=== PATIENT | female | born 1980 | race Caucasian/White ===

== ENCOUNTER → 2020-01-10 14:14 | Outpatient (CLI) | payer OTHER, SELFPAY ==
--- NOTE | 2020-01-10 | DI.US.S_ITS ---
PROCEDURE: US OB >= 14 WEEKS FETUS INDICATIONS: 20 week Anatomy scan OUTSIDE/PRIOR DATING DATA: Last menstrual period (LMP): 08/12/2019. LMP-based estimated date of delivery (ELVIA): 05/18/2020 . First dating scan (date and location): 10/10/2019 . Estimated date of delivery (ELVIA) from first dating scan: 05/27/2020 . TECHNIQUE: Real-time scanning was performed of the fetus, with image documentation and biometric measurements. Endovaginal scanning: No COMPARISON: [facility], US, US OB < 14 WEEKS + OB TRANSVAG, 10/10/2019, 14:28. FINDINGS: General: A single living intrauterine gestation is present. Presentation: Vertex. Placenta: Placental position is anterior right lateral , without previa. Amniotic fluid index: 11.5 cm, normal range is 5-24 cm. heart rate: 137 beats per minute. Maternal cervical canal: 4.2 cm long. Normal lower limit is 2.5 cm. biometrics: Biparietal diameter: 20 weeks 6 days Head circumference: 20 weeks 2 days Abdominal circumference: 20 weeks 4 days Femur length: 21 weeks 1 day Estimated gestational age from initial scan: 20 weeks 2 days Composite gestational age from present scan: 20 weeks 5 days Estimated weight and percentile: 377 g; 73rd percentile Measurement variability for biometric dating: +/- 7 days from 14 weeks to 15 weeks 6 days gestation, +/- 10 days from 16 weeks to 21 weeks 6 days gestation, +/- 2 weeks from 22 weeks to 27 weeks 6 days gestation, +/- 3 weeks for 28 weeks gestation or later. weight reference: 4500 g or EFW >90/95% is considered macrosomia or large for gestational age. EFW <10% is small for gestational age. EFW 5% or less is considered intra-uterine growth restriction. Anatomic survey: Neuro: Ventricles are non-dilated at less than 10 mm. Cisterna magna is normal at 3-11 mm. Cerebellum is normal in size and morphology. Nuchal skin fold: Normal at less than 6 mm between 14-21 weeks gestational age. Face: Nose and lips, facial profile are normal. Spine: No evidence for spina bifida. Heart: 4-chambered heart is present, with normal ventricular outflow tracts. Diaphragm: Diaphragm is intact. Stomach: Left-sided stomach is present. Kidneys: No hydronephrosis. Normal is less than 5 mm in 2nd trimester, less than 7 mm in 3rd trimester. Cord: 3-vessel cord has orthotopic insertion. Bladder: Normal in size. Extremities: All 4 extremities identified. IMPRESSION: 1. Single living IUP redemonstrated and interval growth is normal. 2. Normal anatomic survey. Dictated by: Javi Suarze [facility] Interpreted: Markell Araya MD on 01/10/2020 at 15:59 Approved by: Markell Araya M.D. on 01/10/2020 at 17:25
== END ==
PROVIDERS: Family Provider Family Medicine; Referring Provider Nurse Practitioner Obstetrics & Gynecology; Visit Provider Nurse Practitioner Obstetrics & Gynecology
DX: Z34.92 Encounter for supervision of normal pregnancy, unspecified, second trimester (principal); Z3A.20 20 weeks gestation of pregnancy
CPT/HCPCS: 76811

== ENCOUNTER → 2020-02-10 08:52 | Outpatient (CLI) | payer OTHER, MEDICAID, SELFPAY ==
[2020-02-10 11:28] LABS: Hematocrit 34.1 % (36-46); Hemoglobin 11.8 g/dL (12.0-16.0); Mean Corpuscular HGB Conc 34.6 % (30-36); Mean Corpuscular Hemoglobin 31.4 PG (26-34); Mean Corpuscular Volume 90.7 fL (80-100); Platelet Count 225 X10^3/uL (150-400); Red Blood Cell Count 3.76 X10^6/uL (4.0-5.2); Red Cell Distribution Width 13.9 % (11.6-14.8); White Blood Cell Count 9.8 X10^3/uL (4.5-11.0)
[2020-02-10 11:31] LABS: Glucose Fasting 81 mg/dL (70-100)
[2020-02-10 11:46] LABS: Glucose Tol Interpretation INTERPRETATION
[2020-02-10 11:56] LABS: Glucose 1 Hour 127 mg/dL (70-170)
[2020-02-10 12:32] LABS: Glucose 2 Hour 131 mg/dL (70-140)
== END ==
PROVIDERS: Family Provider Family Medicine; PCP Family Medicine; Referring Provider Nurse Practitioner Obstetrics & Gynecology; Visit Provider Nurse Practitioner Obstetrics & Gynecology
DX: Z34.90 Encounter for supervision of normal pregnancy, unspecified, unspecified trimester (principal); Z13.1 Encounter for screening for diabetes mellitus; Z3A.26 26 weeks gestation of pregnancy
CPT/HCPCS: 36415; 82951; 82952; 85027

== ENCOUNTER 2020-06-03 07:30 | Inpatient (IN) | payer OTHER, MEDICAID, SELFPAY ==
--- NOTE | 2020-06-03 07:49 | PM.OBHP.1 ---
OB HPI Date/Time Date of admission: 06/03/20 Date Patient Seen: 06/03/20 Time Patient Seen: 07:30 History of Present Condition Chief complaint: Induction : 1 Para: 0 Estimated Date of Delivery: 05/27/20 Estimated Gestational Age (weeks): 41 Narrative: Nas Galvin is a 39 year old female G1P 0n @ 41wks by LMP and early US who presents for a post-dates IOL. Was seen in clinic last night w/ a reactive NST and Francisco balloon placed. Had moderate contractions from 8pm-12am and then was able to sleep. Uncomplicated PN care w/ CNM. Desires low intervention . Supported by partner, Trevon and Neli hunter, to come once Nas is kesha regularly. Indications Indication for induction OB: post dates History of Present care: good care, initiated at week # (11), number of visits (11) and pounds weight gain (27) Dating criteria: LMP confirmed by 1st trimester US Ultrasounds: normal mid trimester US Obstetrical complications: none Medical complications: none Preadmission Labs Blood type: A (+) positive -: Antibody screen: negative, GBS status: positive, HBsAG: negative, HIV: negative, HSV 1: positive, HSV 2: negative and RPR/VDLR: negative -: Chlamydia screen: not detected and Gonorrhea screen: not detected -: Rubella: immune HCT: 34.1 HCAB: negative Cell-free DNA: Negative/female Narrative: 2hr gtt: 81/127/131 Evaluation Evaluation Baseline heart rate: 140 Variability: Moderate (11-25) monitor accelerations: Present monitor decelerations: Absent Contraction Frequency (minutes): 0 Status: Category l Cervical dilation (cm): 4 Cervical effacement (%): 70 station: -4 Laboratory results: soft, posterior Francisco balloon removed from vagina prior to CE. [facility] Medical History (Updated 06/03/20 @ 08:05 by Tova Lyle CNM) Anxiety Nipple anomaly Social History (Updated 06/03/20 @ 08:06 by Tova Lyle CNM) marital status: household members: spouse lives independently: Yes caregiver/support person: No housing: house education level: college current occupational exposures/hazards: No special aviva needs: No Smoking Status: Never smoker Meds Home Medications and Allergies Allergies Allergy/AdvReac Type Severity Reaction Status Date / Time No Known Drug Allergies Allergy Verified 06/03/20 08:11 Review of Systems Review of Systems ROS: Yes All systems reviewed with the patient and are negative except as otherwise documented Exam Vital Signs (past 8 hours): BP 116/65, HR 91bpm, T 36.6C Temporal Presentation: vertex Assessment and Plan Assessment and Plan Assessment and Plan narrative: A: [place] 41 wk IOL GBS prophylaxis indicated Reactive NST P: Admit routine orders. Recommend 2 doses of misoprostil, give Reddy score of 7 this morning. Will start IV and pitocin once Reddy of 8-9 is achieved. Will start penicillin for GBS once in active labor. consultation after . Reassess after 2 dose of misoprostil ( around 4pm) or sooner, PRN. Time Spent with Patient Total time spent with greater than 50% in coordination of care (as documented) at patient's floor/unit and/or counseling patient:: 15-24 minutes
[2020-06-03 08:12] VITALS: BP 116/65
[2020-06-03] MEDS: miSOPROStoL 25 MCG TABLET 50 MCG PO ×2 (08:22→12:34)
[2020-06-03 08:36] LABS: Add Manual Diff / Slide Review NO; Basophils Absolute Auto 0 /uL (0-100); Basophils Percent Auto 0.2 % (0-2); Eosinophils Absolute Auto 0 /uL (0-450); Eosinophils Percent Auto 0.3 % (2-4); Hematocrit 37.4 % (36-46); Hemoglobin 12.5 g/dL (12.0-16.0); Lymphocytes Absolute Auto 1200 /uL (1100-4500); Lymphocytes Percent Auto 8.7 % (25-40); Mean Corpuscular HGB Conc 33.4 % (30-36); Mean Corpuscular Hemoglobin 30.5 PG (26-34); Mean Corpuscular Volume 91.3 fL (80-100); Monocytes Absolute Auto 800 /uL (0-900); Neutrophils Absolute Auto 11400 /uL (1500-7000); Neutrophils Percent Auto 84.8 % (50-75); Platelet Count 202 X10^3/uL (150-400); Red Cell Distribution Width 13.5 % (11.6-14.8); White Blood Cell Count 13.4 X10^3/uL (4.5-11.0)
[2020-06-03 08:57] LABS: COVID19 - ADMIT (NP swab/PCR) Negative (Negative)
--- NOTE | 2020-06-03 15:55 | PM.OBPNLAB ---
Date/Time Date Patient Seen: 06/03/20 Time Patient Seen: 15:35 Pain Control Pain control: tolerating well Comments: SROM, clear fluid occurred @ 1505. Nas thinks her contractions have spaced but gotten stronger since ROM. Now occasionally breathing through contractions, but says they;re not strong. Pelvic Exam Dilation (cm): 4 Effacement (%): 70 station: -4 Amniotic membrane status: Leaking (clear) Contractions Contractions on admission: none Monitor mode: External Pitocin rate (mU/min): 0 Contraction frequency (min): 4 Contraction duration (min): 1 Contraction pattern: Regular Contraction intensity: Moderate Status status: Category ll Heart Rate Baseline: 150 Monitor Accelerations: Absent Monitor Decelerations: Early, Late (x2) and Variable Monitor Variability: Moderate Assessment and Plan Assessment: induction ongoing Plan: continuous present management Comments: Start PCN for GBS prophylaxis. Expectant management x 4 hours as pt is currently breathing through contractions and ruptured w/ last/second dose of misoprostil @ 1230. Reassess in 4 hours or sooner, PRN.
[2020-06-03] MEDS: LACTATED RINGERS 1,000 ML 100 ML IV (16:00)
[2020-06-03] MEDS: PENICILLIN G POTASSIUM 5,000,000 UNIT in DEXTROSE 5% IN WATER 250 ML IV (16:06)
[2020-06-03] MEDS: PENICILLIN G POTASSIUM 3,000,000 UNIT/50 ML FROZ.PIGGY 100 UNIT IV (19:49)
--- NOTE | 2020-06-03 19:56 | PM.OBPNLAB ---
Date/Time Date Patient Seen: 06/03/20 Time Patient Seen: 19:57 Pain Control Pain control: tolerating well Comments: Nas has been laboring well without medication. Trying lots of different positions, currently rocking on the CUB, leaning on Trevon, breathing through and moaning with strong contractions. Continuous system validation engineer support since 1729. Continues to leak small amounts of fluid, noted to be lightly stained w/ meconium. VS: BP 104/66mmHg, HR 87bpm, T 36.9C Temporal Pelvic Exam Dilation (cm): 5 Effacement (%): 90 station: -2 Amniotic membrane status: Leaking (clear) Comments: CE @ 1730 Contractions Monitor mode: External Pitocin rate (mU/min): 0 Contraction frequency (min): 3 Contraction duration (min): 1 Contraction pattern: Regular Contraction intensity: Strong/Firm Status status: Category ll Heart Rate Baseline: 145 Monitor Accelerations: Present Monitor Decelerations: Early and Variable Monitor Variability: Moderate Comments: overall reassuring Assessment and Plan Assessment: active labor Plan: continuous present management Comments: Continue expectant management of labor. Continuous labor support. Reassess in 2 hours or sooner, PRN.
[2020-06-03] MEDS: OXYTOCIN PREMIX 30 UNIT/500 ML PLAST..BAG 200 UNIT IV (21:03)
--- NOTE | 2020-06-03 22:09 | PM.OBPNLAB ---
Date/Time Date Patient Seen: 06/03/20 Time Patient Seen: 22:09 Pain Control Pain control: tolerating well Comments: Nas continues to labor well without medication. Currently on knees on CUB in bed. Breathing through and moaning with contractions, occasionally feeling mild rectal pressure. Pelvic Exam Dilation (cm): 7 Effacement (%): 90 station: -1 Amniotic membrane status: Leaking (clear) Contractions Contractions on admission: none Monitor mode: External Pitocin rate (mU/min): 0 Contraction frequency (min): 3 Contraction duration (min): 1 Contraction pattern: Regular Contraction intensity: Strong/Firm Status status: Category ll Heart Rate Baseline: 150 Monitor Accelerations: Absent Monitor Decelerations: Early and Variable Monitor Variability: Moderate Comments: OP position Assessment and Plan Assessment: active labor Plan: continuous present management Comments: Continue expectant management of labor. Recommend [employer] to promote rotation. Continuous EFM. RT @ for meconium. on unit, aware of FHR tracing, patient status and plan of care. Reassess in 4 hours or sooner, PRN.
[2020-06-04] MEDS: PENICILLIN G POTASSIUM 3,000,000 UNIT/50 ML FROZ.PIGGY 100 UNIT IV (00:06)
--- NOTE | 2020-06-04 01:53 | PM.OBPNLAB ---
Date/Time Date Patient Seen: 06/04/20 Time Patient Seen: 01:53 Pain Control Pain control: tolerating well Comments: Patient continues to labor well without medication. Continues to leak small amounts of meconium stained fluid, recently w/ bloody show. Continuous labor support from elsa Lester Dana, ad CNM. Recently got out of the tub and is currently on hands and knees in bed. Pelvic Exam Dilation (cm): 9 Effacement (%): 100 station: +1 Amniotic membrane status: Leaking (clear) Comments: FSE placed @ 0146 Contractions Contractions on admission: none Monitor mode: Internal Pitocin rate (mU/min): 0 Contraction frequency (min): 3 Contraction duration (min): 1 Contraction pattern: Regular Contraction intensity: Strong/Firm Status status: Category ll Heart Rate Baseline: 135 Monitor Accelerations: Absent Monitor Decelerations: Late Monitor Variability: Moderate Comments: Previously recurrent late decelerations have resolved w/ position, and O2 @ 10L /NRB mask Assessment and Plan Assessment: active labor Plan: continuous present management Comments: Discussed FHR tracing and labor progress w/ right before resolution of late decelerations. Will continue expectant management and continuous bedside support. Anticipate beginning seconds stage soon.
--- NOTE | 2020-06-04 03:10 | P.PCNOB_ITS ---
Events: Labor Induction (41wk) and Meconium Stained Fluid Labor & Delivery Delivery date: 06/04/20 Cervical ripening method: per misoprostal protocol Induction method: none Delivery monitor: external uterine and internal FHT Route of delivery: L&D Laceration Description: None Estimated blood loss (mL): 100 Anesthesia Type: None Narrative: Ayame was presumed complete with spontaneous urge to push. Rectal and perineal bulging was quickly seen w/ steady descent of vertex. RT was called to standby with . NSVB of a viable baby girl in OA position with no nuchal cord and easy delivery of the shoulders. Copious terminal meconium was noted. [place] was placed on maternal abdomen for drying and stimulation. There was HR>12bpm and some respiratory effort at 30 seconds, but no cry and poor color so cord was double clamped and cut and was taken to the [facility] for NRP. 30 units of pitocin in 500mL LR was started at 250mL/hr for AMTSL. [place] was placed skin to skin w/ mom by 4 minutes of life. Apgars 6/8. Gentle cord traction and single maternal push led to spontaneous, Schultze delivery of an apparently intact placenta, membranes and 3VC. Fundus immediately firm and bleeding minimal. Vaginal and perineum inspected and intact. QBL 100mL. Both mother and baby stable and skin to skin as I left the room. [place] Baby 1: Infant gender: Female Presentation: vertex Position: Right Occiput Anterior Placenta delivery description: Spontaneous Cord Vessel Description: 3 Vessels score (1 min): 6 score (5 min): 8 weight: 2.6 kg Plan for aftercare: Routine care
[2020-06-04] MEDS: LANOLIN OINT 7 GM 1 APPLIC TOP (04:01)
[2020-06-04] MEDS: KETOROLAC 30 MG/ML VIAL IV (04:02)
[2020-06-04] MEDS: DERMOPLAST SPRAY 20% 60 ML 1 SPRAY TOP (04:02)
[2020-06-04] MEDS: IBUPROFEN 600 MG TABLET PO (18:57)
--- NOTE | 2020-06-05 09:39 | PM.OBDS.1 ---
Discharge Providers Provider Date of admission: 06/03/20 07:30 Discharge Date: 06/05/20 Primary care physician: Kaity Kenney MD Consults: 06/05/20 03:08 Consult to Biology Intern Routine Comment: Discharge provider: Tova Lyle CNM Summary Discharge Diagnosis (1) Encounter for vaginal delivery: Status: Acute Problem Details: Nas is showered and dressed in her own clothes. Voiding, ambulating and independently. Tolerating general diet. Pain controlled w/ PO medication. Trevon remains supportive and both feel ready for discharge to home with their baby. Time Spent with Patient Time attestation: Total time spent providing and/or coordinating discharge services: Objective Labs Result Diagrams: 06/03/20 08:12 Exam Vital Signs (past 8 hours): BP 100/54, HR 71bpm, RR 17/min, T 97.9F Other: Fundus firm @ u-1, lochia light, perineum intact Discharge Plan Discharge Plan Patient Disposition: Home Discharge orders & Medications Prescriptions: New ibuprofen 600 mg Tablet 600 mg PO Q6HR PRN (Reason: Pain, Mild (1-3)) 14 Days Qty: 60 RF: 0 Follow up/Referrals: Kaity eKnney MD [Primary Care Provider] - Tova Lyle CNM [Advanced Field Crop Technical Officer] - (Follow-up 06/18/20 @ 1000 by Telehealth Follow-up 07/15/20 @ 1100 in office) Diet/Activity/Treatments Diet: Regular Activity: pelvic rest x6 weeks Skin/Wound/Dressing Care Report to your healthcare provider any signs of infection, such as:: chills, fever, increased pain, unusual drainage and unusual redness Visit Report/Discharge Packet Instructions: DI for Depression Discharge Data Primary Care Provider: Kaity Kenney
[2020-06-05 10:14] VITALS: BP 111/61; PULSE 81; RESP 17; TEMP 37.2
== END 2020-06-05 13:55 | disposition home or self-care (01) | DRG 560 ==
PROVIDERS: Admitting Provider Nurse Practitioner Obstetrics & Gynecology; Family Provider Family Medicine; PCP Family Medicine; Referring Provider Nurse Practitioner Obstetrics & Gynecology; Visit Provider Nurse Practitioner Obstetrics & Gynecology
DX: O48.0 Post-term pregnancy (principal); Z3A.41 41 weeks gestation of pregnancy; Z37.0 Single live birth; O99.824 Streptococcus B carrier state complicating childbirth; O77.0 Labor and delivery complicated by meconium in amniotic fluid; Z20.822 Contact with and (suspected) exposure to COVID-19
CPT/HCPCS: 36415; 59050; 59200; 85025; 86850; 86900; 86901; 87635; C9803; G0379; J1885; J2540; J2590

== ENCOUNTER → 2021-07-09 11:17 | Outpatient (CLI) | payer OTHER, MEDICAID, SELFPAY ==
--- NOTE | 2021-07-09 | DI.US.S_ITS ---
PROCEDURE: US PELVIC COMPLETE INDICATIONS: RIGHT ADNEXAL MASS FOLLOW UP TECHNIQUE: Real-time scanning was performed of the pelvic organs, with image documentation. Additional endovaginal scanning was necessary due to incomplete visualization of the adnexal and endometrial structures by transabdominal scanning. COMPARISON: Merged With [facility], US, US PELVIC + TRANSVAG + DOPPLER LIMITED, 05/07/2021, 14:47. FINDINGS: Uterus: Uterus is anteverted and normal in size at 7.7 x 4.9 x 4.0 cm. The myometrium is homogeneous. The endometrium measures 7.3 mm combined thickness. Intrauterine device is present and in expected central endometrial position. Ovaries: Right ovary measures 4.1 x 4.8 x 2.8 cm in the left ovary measures 4.1 x 4.1 x 1.8 cm. No significant interval change and complex cyst involving the right ovary which contains fine low level internal echoes measuring 3.6 x 3.9 x 2.5 cm. Simple cyst is now seen involving the left ovary measuring 3.1 x 3.7 x 1.7 cm. Other: No pathologic free abdominal or pelvic fluid. IMPRESSION: 1. No significant interval change in appearance of complex right ovarian cyst which contains uniform fine low level internal echoes suspicious for an endometrioma measuring up to 3.9 cm. Continued sonographic surveillance is recommended. 2. Simple left ovarian cyst measuring 3.7 cm. 3. Intrauterine device in expected position. We strive to produce accurate, complete, and clear reports of imaging services. To assist us in improving patient care, this report was composed using standard report templates and voice recognition software. Therefore, it may contain abnormal punctuation, insertions and/or omissions. Occasional wrong-word or sound-alike substitutions may occur. Though we review the report and make efforts to correct it, we do recommend that the report be read carefully in proper context to recognize any text inaccuracies. Dictated by: Javi AMAYA Interpreted: Ace Grimaldo MD on 07/14/2021 at 16:20 Approved by: Ace Grimaldo M.D. on 07/14/2021 at 17:34
== END ==
PROVIDERS: Family Provider Family Medicine; PCP Physician Assistant Medical; Referring Provider Nurse Practitioner Obstetrics & Gynecology; Visit Provider Nurse Practitioner Obstetrics & Gynecology
DX: N92.1 Excessive and frequent menstruation with irregular cycle (principal); N83.291 Other ovarian cyst, right side; N83.292 Other ovarian cyst, left side; Z97.5 Presence of (intrauterine) contraceptive device
CPT/HCPCS: 76856

== ENCOUNTER → 2022-06-23 10:22 | Outpatient (CLI) | payer OTHER, SELFPAY | PROVIDERS: Family Provider Family Medicine; PCP Physician Assistant Medical; Visit Provider Physician Assistant Medical | DX: J02.9 Acute pharyngitis, unspecified (principal) | CPT/HCPCS: 87070 ==

== ENCOUNTER → 2024-06-13 11:56 | Outpatient (CLI) | payer BC, SELFPAY ==
--- NOTE | 2024-06-13 11:59 | DI.US.S_ITS ---
PROCEDURE: US PELVIC COMPLETE INDICATIONS: Hx of ovarian cyst, assess for size, resolution TECHNIQUE: Real-time scanning was performed of the pelvic organs, with image documentation. Additional endovaginal scanning was necessary due to incomplete visualization of the adnexal and endometrial structures by transabdominal scanning. COMPARISON: [facility], US, US PELVIC COMPLETE, 07/09/2021, 12:31. FINDINGS: Uterus: Uterus is anteverted and normal in size at 7.4 x 5.3 x 4.0 cm. The myometrium is mildly heterogeneous. No discrete uterine fibroid is seen. The endometrium measures 6.3 mm combined thickness. 7 x 5 x 8 mm hyperechoic structure is noted within endometrium near fundus of uterus and show no internal vascularity. Ovaries: The right ovary measures 5.7 x 4.4 x 3.2 cm, with a calculated ovarian volume of 41.9 cc. The left ovary measures 4.2 x 2.2 x 1.8 cm, with a calculated ovarian volume of 8.6 cc. Complex appearing cystic structure is noted in right ovary measures 4.8 x 3.8 x 2.7 cm in size, previously 3.9 x 3.6 x 2.5 cm. No definite internal vascularity is seen. Less than 12 follicles can be seen in each ovary. No adnexal masses are seen. Other: No pathologic free abdominal or pelvic fluid. IMPRESSION: 1. Interval increase in size of patient's known complex cystic structure in right ovary as described above. Finding may represent endometrioma. Continue ultrasound follow-up is recommended. 2. No new ovarian lesion is seen. No evidence of ovarian torsion. 3. Subcentimeter hypoechoic structure noted within endometrium near fundus of uterus and show no internal vascularity not seen on 2021 study. Clinical correlation and LEASES AND LAND SUPERVISOR evaluation is recommended. No discrete uterine fibroids. We strive to produce accurate, complete, and clear reports of imaging services. To assist us in improving patient care, this report was composed using standard report templates and voice recognition software. Therefore, it may contain abnormal punctuation, insertions and/or omissions. Occasional wrong-word or sound-alike substitutions may occur. Though we review the report and make efforts to correct it, we do recommend that the report be read carefully in proper context to recognize any text inaccuracies. Dictated by: Ace Grimaldo M.D. on 06/14/2024 at 10:59 Approved by: Ace Grimaldo M.D. on 06/14/2024 at 11:12
== END ==
PROVIDERS: Family Provider Family Medicine; PCP Physician Assistant Medical; Referring Provider Nurse Practitioner Adult Health; Visit Provider Nurse Practitioner Adult Health
DX: N83.291 Other ovarian cyst, right side (principal)
CPT/HCPCS: 76830; 76856; 93976